=== PATIENT | female | born 1945 | race Caucasian/White ===

== ENCOUNTER 2021-10-19 06:10 | Day surgery (SDC) | payer MEDICARE, OTHER, SELFPAY ==
[2021-10-15 14:27] VITALS: BMI 27.4
[2021-10-19 06:54] VITALS: BP 166/85; PULSE 66; RESP 18; TEMP 36.2; O2SAT 98
--- NOTE | 2021-10-19 07:25 | W.PM.OPSFHP ---
Same Day Surgery H&P Indication for Procedure/HPI DATE OF PROCEDURE: October 19, 2021 CHIEF COMPLAINT/INDICATIONFOR SURGICAL PROCEDURE: Family History of Colon Cancer PREOP DIAGNOSIS: Screen FH PLANNED PROCEDURE: Operation Date: 10/19/21 08:00 Proposed Procedures p Colonoscopy 55392,Z80.0(Not Applicable) - Stanford Duval MD Medications/Allergies* Home Medications Medication Instructions Recorded Confirmed Type ezetimibe 10 mg-simvastatin 40 mg 1 tab PO DAILY 10/05/21 10/15/21 History tablet omeprazole 20 mg capsule,delayed 20 mg PO DAILY 10/05/21 10/15/21 History release Allergies/Adverse Reactions Allergy/AdvReac Type Severity Reaction Status Date / Time No Known Allergies Allergy Unverified 10/05/21 14:14 Pertinent Exam Findings alert, oriented x 3, clear to auscultation bilaterally, regular rate & rhythm, operative site marked and procedure specific exam findings Recommendations Surgery/Procedure today Coding Level of Care Code Acute Color Checker Roving Or Yarn for Estella Cohn
[2021-10-19] MEDS: sodium chloride 0.9% 1,000 ML 30 ML IV (07:26)
--- NOTE | 2021-10-19 07:32 | P.ANESASSM_ITS ---
Pre-Anesthetic Assessment Height/Weight: Height 1.63 m Weight 72.575 kg Temp Pulse Resp BP Pulse Ox 97.2 F L 66 18 166/85 98 10/19/21 06:54 10/19/21 06:54 10/19/21 06:54 10/19/21 06:54 10/19/21 06:54 Preop Diagnosis: Screen FH Operation Date: 10/19/21 08:00 Proposed Procedures p Colonoscopy 26964,Z80.0(Not Applicable) - Stanford Duval MD Familial anesthetic complications: None Was Beta Gil taken within 24 hours: N/A Was Clonidine taken within 24 hours: N/A Last intake: Intake Last Liquid Date 10/18/21 Last Liquid Time 21:00 Last Solid Date 10/17/21 Last Solid Time 18:00 Social No alcohol and No tobacco Exam alert, oriented x 3, clear to auscultation bilaterally and regular rate & rhythm Airway Submandibular: within normal limits Cervical ROM: within normal limits Mallampati: Class II Comments: Comments: Missing multiple molars History/ROS No significant complaints Pulmonary None reported CV/HEM None reported METS > 4 None reported Hepatic None reported GI None reported Metabolic None reported Musc/skel None reported Neuropsych None reported Anesthetic Plan ASA status: 1 Anesthesia: Anesthesia Evaluation, General and MAC Other: I discussed with the patient risks, goals, and benefits of MAC and general anesthesia. We discussed spectrum of MAC anesthesia including conversion to general as well as possibility of recall of intraoperative stimuli including di scomfort/pain. Patient agrees to proceed with MAC. Risk of > 500 ml blood loss (7ml/kg in children): No Medications/Allergies Home Medications Medication Instructions Recorded Confirmed Last Taken Type ezetimibe 10 mg-simvastatin 40 mg 1 tab PO DAILY 10/05/21 10/15/21 10/18/21 History tablet omeprazole 20 mg capsule,delayed 20 mg PO DAILY 10/05/21 10/15/21 10/18/21 History release Allergies Allergy/AdvReac Type Severity Reaction Status Date / Time No Known Allergies Allergy Unverified 10/05/21 14:14 Current Medications Generic Name Dose Route Start Last Admin Trade Name Freq PRN Reason Stop Dose Admin Sodium Chloride 1,000 mls @ 30 mls/hr 10/19/21 06:45 10/19/21 07:26 Sodium Chloride 0.9% IV 30 mls/hr .Q24H JOE Administration Data Anesthesia Cardiac Studies: No Data to Display
[2021-10-19 08:56] VITALS: BP 102/60; PULSE 67; RESP 20; TEMP 36.2; O2SAT 99
--- NOTE | 2021-10-19 09:00 | ANE.PACU2 ---
Documented by User: Macey Walters CRNA 10/19/21 09:01 Inpatient post-anesthesia follow up: Airway intact: Yes Vital signs: Temperature 97.2 F Pulse Rate 67 Respiratory Rate 20 Blood Pressure 102/60 Pulse Oximetry 99 Oxygen Delivery Me thod Room Air Oxygen Flow Rate Fraction of Inspir ed Oxygen Hydration adequate: Yes Nausea and vomiting: No Pain level: 1 Mental status: Baseline
[2021-10-19 09:06] VITALS: BP 120/78; PULSE 76; RESP 18; O2SAT 99
[2021-10-19 09:13] VITALS: BP 136/67; PULSE 76; RESP 18; O2SAT 98
== END 2021-10-19 09:30 | disposition home or self-care (01) ==
PROVIDERS: PCP Family Medicine; Visit Provider Internal Medicine
PROC: 0DJD8ZZ Inspection of Lower Intestinal Tract, Via Natural or Artificial Opening Endoscopic (ICD-10-PCS; CPT 45378; principal; 2021-10-19 08:00)
DX: Z12.11 Encounter for screening for malignant neoplasm of colon (principal); Z80.0 Family history of malignant neoplasm of digestive organs; D12.8 Benign neoplasm of rectum; K64.8 Other hemorrhoids
CPT/HCPCS: 45385; 88305; J2704; J7030